=== PATIENT | male | born 1990 | race Caucasian/White ===

== ENCOUNTER 2021-08-17 19:33 | Inpatient (IN) | payer MEDICAID, SELFPAY ==
[2021-08-17 19:33] VITALS: BP 146/102; PULSE 107; RESP 20; TEMP 36.8; O2SAT 100
[2021-08-17 21:12] VITALS: BMI 34.5
[2021-08-17 21:20] VITALS: BP 146/102; PULSE 107; RESP 20; TEMP 36.8; O2SAT 100
[2021-08-17 21:49] VITALS: BMI 34.5
[2021-08-17] MEDS: buprenorphine-naloxone 4-1 mg Film 2 EACH SUBLINGUAL (22:31)
[2021-08-17] MEDS: doxepin 50 mg Capsule 100 MG PO (22:31)
[2021-08-17] MEDS: prazosin 1 mg Capsule PO (22:31)
[2021-08-17] MEDS: OLANZapine 5 mg ODT PO (22:37)
[2021-08-17] MEDS: gabapentin 400 mg Capsule 800 MG PO (22:37)
--- NOTE | 2021-08-17 23:32 | PC.ADMIT ---
Admission Note: Patient is a 31 year old male who was a direct admit from [facility]. He states he is here for help with his depression and anxiety and has been having suicidal thoughts like jumping out in front of a car. Patient has been using meth for 3 weeks heavily. Today his brother kicked him out and he is now homeless. He reports to the ED that he has PTSD from hs mother dying in his arms from an overdose as a kid. He has been to alf 3 times. The patient,Nam Dotson,31 y/o, was given written information regarding hospital policies, unit procedures and contact persons. Patient's smoking status: . Vital Signs - 8 hr 08/17/21 19:33 08/17/21 21:20 Temperature 98.2 F 98.2 F Pulse Rate 107 H 107 H Respiratory Rate 20 H 20 H Blood Pressure 146/102 146/102 Pulse Oximetry 100 100
[2021-08-18 06:00] VITALS: BP 125/78; PULSE 67; RESP 18; TEMP 36.5; O2SAT 95
[2021-08-18] MEDS: OXcarbazepine 300 mg Tablet PO (09:08)
[2021-08-18] MEDS: metroNIDAZOLE 500 MG Tablet PO ×3 (09:08→20:22)
[2021-08-18] MEDS: buprenorphine-naloxone 4-1 mg Film 2 EACH SUBLINGUAL ×2 (09:08→20:22)
[2021-08-18] MEDS: gabapentin 400 mg Capsule 800 MG PO ×3 (09:08→20:22)
[2021-08-18] MEDS: acetaminophen 325 mg Tablet 650 MG PO (09:08)
--- NOTE | 2021-08-18 12:08 | W.PM.NPUH&PS ---
Providers/Chief Complaint Admitting Physician: Saul Mares MD Chief Complaint: Substance Abuse HPI NPU History of Present Illness Nam Dotson is a 31 year old male admitted from an outside emergency department with the following report: 31-year-old male with HIV, anxiety/depression, PTSD and polysubstance abuse presented to the ER with plans to run into moving traffic to commit suicide . ?He states that he was at his brother's and he kicked him out, after he gave him half of his check for rent. ?He uses meth (snorts or eats it) 1-2 times weekly when he can get it, but ?really heavily lately .? He reports he has PTSD because he overdosed mother in his arms when he was a kid. ?He has been in long term you do not know what that will do to you .? He is anxious and said Haldol and Ativan they gave him has not helped, I need something more-like a load .? Currently not suicidal in the hospital but I do not know what I will do if I get kicked out of here, I am homeless .? Informed he is being admitted and social service will consulted for safe discharge plan, suicide precautions, he has recently drug refills and will review pharmacy and renal dose adjustment.? Multiple tattoos they mean something in long term he lives all over I have been here in [facility] and no many friends.? He apparently has previously lived in both the [place] and [place] areas.? He is requesting to be located back to 1 of those areas.? At this time he denies any homicidal ideation, although he admits to ongoing depression and suicidal ideation as outlined above. Urinalysis was positive for tricyclic antidepressants and methamphetamine. ?Affidavit: the patient reports that his life is never going to get better because I have HIV and I will never have another girl again.? I am homeless so what do I have to live for .? It is recommended that the patient be psychiatrically hospitalized as he is currently suicidal with a plan to jump out in front of a vehicle.? The patient's insight and judgment poor if he cannot be treated at a lower level of care. He was admitted to the neuropsychiatry unit for definitive treatment of these issues. He says that he was recently hospitalized for depression and suicidal ideation and was released about 3 weeks ago. He says that they continued his doxepin 100 mg daily gabapentin 800 mg 3 times a day and Suboxone 8 mg twice a day. He says they discontinued Zyprexa 10 mg which he had been on for about 1 year. They added Trileptal 300 mg twice a day and Viibryd 20 mg daily as well as Thorazine 100 mg twice a day. He says that the Thorazine was supposed to be for his anxiety and anger problems. He has not been able to take that because the pharmacy did not have it and then he was unable to go back and get it. He said it did help but it made him tired during the day. He does not think the Viibryd has helped. He is not sure about the Trileptal. He does not think his depression was any any better. He has been living in his brother's house. This past weekend he was doing drugs with his brother and friends. He said that his brother got messed up and kicked him out of the house. He says that he would not want to go back even if his brother left him because he needs to stay away from the drugs. He wants to go to a rehab facility. He has depressed and suicidal. He is not sure what his underlying diagnosis is. He thinks it is depression. Maybe bipolar. His childhood was not very good. Both his mother and father were drug addicts. They were both spent time in long term. His mother of a fentanyl overdose and he was there and she in his arms. He feels like he has PTSD from that. He did not graduate from high school but got his GED. He says that he addicted to pain medications when he was 16 years old and took medications for tooth problems. He then was transitioned to heroin and fentanyl which he used until very recently. He has been off of heroin for 11 months. His drug of choice for the last couple of years has been methamphetamine. He has been in long term a few times. He also feels like he has PTSD from that. He has always had social anxiety. He worries too much about what people think. He has difficulty going to shopping. He also has an anger problem and says that was a little better since he has been on the Trileptal. PAST PSYCHIATRIC HISTORY As above SOCIAL HISTORY As above Meds NPU Home Medications Medication Instructions Recorded Confirmed Last Taken Type bictegravir 50 mg-emtricitabine See Rx Instructions .ROUTE .COMPLEX 08/18/21 08/18/21 08/16/21 History 200 mg-tenofovir alafenam 25 mg tablet (Biktarvy) buprenorphine 8 mg-naloxone 2 mg See Rx Instructions .ROUTE .COMPLEX 08/18/21 08/18/21 08/16/21 History sublingual film (Suboxone) doxepin 100 mg capsule 100 mg PO BEDTIME 08/18/21 08/18/21 08/16/21 History gabapentin 800 mg tablet 800 mg PO TID 08/18/21 08/18/21 08/17/21 History metronidazole 500 mg tablet 500 mg PO TID 08/18/21 08/18/21 08/17/21 History olanzapine 10 mg tablet 10 mg PO BEDTIME 08/18/21 08/18/21 08/17/21 History oxcarbazepine 300 mg tablet 300 mg PO BID 08/18/21 08/18/21 08/17/21 History prazosin 1 mg capsule 1 mg PO BEDTIME 08/18/21 08/18/21 08/17/21 History vilazodone 20 mg tablet (Viibryd) 20 mg PO AC 08/18/21 08/18/21 08/17/21 History Allergies Allergy/AdvReac Type Severity Reaction Status Date / Time codeine Allergy Unknown Verified 08/17/21 21:17 Mental Status Exam MSE Comments: This is an obese 31-year-old male who appears approximately his stated age and is in no acute distress. He was pleasant and cooperative with the evaluation. He was lying in bed and did not sit up. He has many tattoos. His grooming is poor and he is dressed in hospital scrubs. psychomotor activity mildly decreased. Speech is at a regular rate and rhythm, normal volume, good articulation, not pressured. Alert, oriented X3 Attention and concentration probably average. Memory is intact Mood is depressed. Affect is mildly dysphoric. Thought process is logical and goal-directed. Thought content: Denies auditory and visual hallucinations. No delusions or paranoia are noted. No he continues to have some suicidal ideation and hopelessness He denies homicidal ideation. Fund of knowledge is probably average. Insight and judgment appear to be fair. Impulse control is poor. Vitals/I&O/Wt Last Vital Signs Temp 97.7 F 08/18/21 06:00 Pulse 67 08/18/21 06:00 Resp 18 08/18/21 06:00 BP 125/78 08/18/21 06:00 Pulse Ox 95 08/18/21 06:00 Weight last 48 hrs Weight 112.309 kg Weight 112.309 kg A&P Assessment and plan (1) PTSD (post-traumatic stress disorder): Status: Acute (2) Bipolar 1 disorder: Status: Acute (3) Anxiety: Status: Acute (4) Opiate addiction: Status: Acute (5) Methamphetamine abuse: Status: Acute (6) Major depressive disorder: Status: Acute (7) Suicidal ideation: Status: Acute Plan This is a 31-year-old male with PTSD and bipolar 1 disorder as well as methamphetamine abuse and is homeless who presents with depression and wanting rehabilitation. Plan: 1. Continue current medication. Except increase the Viibryd to 40 mg daily. Change Thorazine from 100 mg twice a day to 50 mg in the morning and 150 mg at bedtime 2. Continue every 15 minute checks for safety. 3. Encourage individual, group and milieu therapies. 4. Encourage sober living treatment after discharge at the highest level of care to which he is willing to commit. 5. We will monitor for safety for himself in the community prior to discharge. Involuntary Hold Information 96 Hour Hold: 96 Hour Involuntary Admission: Yes 96 Hour Hold Ending Date: 08/21/21 96 Hour Hold Ending Time: 21:05 Attestations NPU Medical Necessity Statement*: Inpatient hospitalization is medically necessary and the clinically appropriate intervention at this time. We will initiate medications and make changes as indicated. 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
[2021-08-18 14:00] VITALS: BP 145/82; PULSE 72; RESP 17; TEMP 36.6; O2SAT 96
--- NOTE | 2021-08-18 15:08 | PC.NURSE ---
Pharmacist from [facility] called with concern of patient medication Biktarvi and Trileptal with a major medication interaction. Trileptal decreases effectiveness of Biktarvi. Physician notified with order received to discontinue trileptal.
[2021-08-18] MEDS: buprenorphine-naloxone 4-1 mg Film 1 EACH SUBLINGUAL (15:57)
[2021-08-18 20:08] VITALS: BP 126/74; PULSE 66; RESP 16; TEMP 36.7; O2SAT 95
[2021-08-18] MEDS: chlorPROMazine 50 mg Tablet 100 MG PO (20:21)
[2021-08-18] MEDS: prazosin 1 mg Capsule PO (20:22)
[2021-08-18] MEDS: doxepin 50 mg Capsule 100 MG PO (20:22)
[2021-08-18] MEDS: chlorPROMazine 50 mg Tablet PO (20:23)
[2021-08-19 06:00] VITALS: BP 120/81; PULSE 71; RESP 17; TEMP 36.4; O2SAT 96
[2021-08-19] MEDS: chlorPROMazine 50 mg Tablet PO ×2 (06:04→20:12)
[2021-08-19] MEDS: VILAZODONE 40 MG 40 EACH PO (06:07)
[2021-08-19] MEDS: gabapentin 400 mg Capsule 800 MG PO ×3 (08:52→20:11)
[2021-08-19] MEDS: buprenorphine-naloxone 4-1 mg Film 2 EACH SUBLINGUAL ×2 (08:52→20:10)
[2021-08-19] MEDS: metroNIDAZOLE 500 MG Tablet PO (08:52)
--- NOTE | 2021-08-19 11:04 | P.NPUPN_ITS ---
Subjective NPU Subjective: He says that he is a little better. He denies any suicidal ideation since he left the hospital who transferred him here. He was informed that the Trileptal that he had been on can decrease the effectiveness of his HIV medication and we discontinued it. He agreed to try some Lamictal instead. Depression is still his main problem. He is on a good dose of doxepin as well as we doubled the dose of Viibryd yesterday. 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 Mental Status Exam MSE Comments: This is an obese 31-year-old male who appears approx imately his stated age and is in no acute distress. He was pleasant and cooperative with the evaluation. He was lying in bed and did not sit up. He has many tattoos. His grooming is poor and he is dressed in hospital scrubs. psychomotor activity mildly decreased. Speech is at a regular rate and rhythm, normal volume, good articulation, not pressured. Alert, oriented X3 Attention and concentration probably average. Memory is intact Mood is depressed. Affect is mildly dysphoric. Thought process is logical and goal-directed. Thought content: Denies auditory and visual hallucinations. No delusions or paranoia are noted. He denies suicidal ideation. he denies homicidal ideation. Fund of knowledge is probably average. Insight and judgment appear to be fair. Impulse control is poor. Cognition: Patient Appearance: Disheveled/Poor Hygiene Ability to Follow Directions: Excellent Patient Orientation (long list): Person, Place, Time, Name, Month and Year Comprehension Ability: No Impairment Hallucination Type: None Delusion Description: Not Present Thought Process: Appropriate Affect: Affect Description: Calm Behavior: Patient Behavior: Appropriate and Cooperative Speech Pattern: Appropriate and Clear Vitals/I&O/Wt Last Vital Signs Temp 97.5 F L 08/19/21 06:00 Pulse 71 08/19/21 06:00 Resp 17 08/19/21 06:00 BP 120/81 08/19/21 06:00 Pulse Ox 96 08/19/21 06:00 Weight last 48 hrs Weight 112.309 kg Weight 112.309 kg A&P Assessment and plan (1) PTSD (post-traumatic stress disorder): Status: Acute (2) Bipolar 1 disorder: Status: Acute (3) Anxiety: Status: Acute (4) Opiate addiction: Status: Acute (5) Methamphetamine abuse: Status: Acute (6) Major depressive disorder: Status: Acute (7) Suicidal ideation: Status: Acute Plan This is a 31-year-old male with PTSD and bipolar 1 disorder as well as methamphetamine abuse and is homeless who presents with depression and wanting rehabilitation. Plan: 1. Continue current medication. Except increase the Viibryd to 40 mg daily. Change Thorazine from 100 mg twice a day to 50 mg in the morning and 150 mg at bedtime. Stop Trileptal. Add Lamictal 25 mg. 2. Continue every 15 minute checks for safety. 3. Encourage individual, group and milieu therapies. 4. Encourage sober living treatment after discharge at the highest level of care to which he is willing to commit. 5. We will monitor for safety for himself in the community prior to discharge. Involuntary Hold Information 96 Hour Hold: 96 Hour Involuntary Admission: Yes 96 Hour Hold Ending Date: 08/21/21 96 Hour Hold Ending Time: 21:05 Attestations NPU Medical Necessity Statement*: Inpatient hospitalization is medically necessary and the clinically appropriate intervention at this time. We will initiate medications and make changes as indicated. 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
[2021-08-19] MEDS: buprenorphine-naloxone 4-1 mg Film 1 EACH SUBLINGUAL (12:15)
[2021-08-19 14:00] VITALS: BP 129/84; PULSE 66; RESP 18; TEMP 36.7; O2SAT 95
[2021-08-19] MEDS: nicotine 2 mg Gum BUCCAL ×3 (16:07→19:47)
[2021-08-19] MEDS: hyDROXYzine 25 mg Capsule 50 MG PO (16:07)
[2021-08-19] MEDS: OLANZapine 5 mg ODT PO (18:29)
[2021-08-19] MEDS: haloperidol 5 mg Tablet PO (19:10)
[2021-08-19 20:00] VITALS: BP 129/91; PULSE 110; RESP 19; TEMP 36.4; O2SAT 97
[2021-08-19] MEDS: doxepin 50 mg Capsule 100 MG PO (20:10)
[2021-08-19] MEDS: chlorPROMazine 50 mg Tablet 100 MG PO (20:11)
[2021-08-19] MEDS: prazosin 1 mg Capsule PO (20:11)
[2021-08-19] MEDS: lamoTRIgine 25 mg Tablet PO (20:11)
[2021-08-20 06:00] VITALS: BP 123/70; PULSE 64; RESP 15; TEMP 36.5; O2SAT 94
[2021-08-20] MEDS: chlorPROMazine 50 mg Tablet PO ×3 (06:37→21:50)
[2021-08-20] MEDS: VILAZODONE 40 MG 40 EACH PO (06:37)
[2021-08-20] MEDS: gabapentin 400 mg Capsule 800 MG PO ×3 (09:57→20:16)
[2021-08-20] MEDS: buprenorphine-naloxone 4-1 mg Film 2 EACH SUBLINGUAL ×2 (09:57→20:16)
[2021-08-20] MEDS: nicotine 2 mg Gum BUCCAL ×5 (09:57→21:53)
--- NOTE | 2021-08-20 10:50 | P.NPUPN_ITS ---
Subjective NPU Subjective: He does feel that the Thorazine is somewhat helpful. He thinks 150 at bedtime is helpful. He thinks that the 50 mg in the morning might be sedating for him but it also seems like when it wears off he starts getting more anxious around 3 PM. He would like to take another dose of 50 mg at 2 PM. He cannot tell any benefits or side effects from the Lamictal 25 mg last night. Social work is still looking for a rehab facility for him. Mental Status Exam MSE Comments: This is an obese 31-year-old male who appears approximately his stated age and is in no acute distress. He was pleasant and cooperative with the evaluation. He was lying in bed and did not sit up. He has many tattoos. His grooming is poor and he is dressed in hospital scrubs. psychomotor activity mildly decreased. Speech is at a regular rate and rhythm, normal volume, good articulation, not pressured. Alert, oriented X3 Attention and concentration probably average. Memory is intact Mood is depressed. Affect is mildly dysphoric. Thought process is logical and goal-directed. Thought content: Denies auditory and visual hallucinations. No delusions or paranoia are noted. He denies suicidal ideation. he denies homicidal ideation. Fund of knowledge is probably average. Insight and judgment appear to be fair. Impulse control is poor. Cognition: Patient Appearance: Disheveled/Poor Hygiene Ability to Follow Directions: Excellent Patient Orientation (long list): Person, Place, Time, Name, Month and Year Comprehension Ability: No Impairment Hallucination Type: None Delusion Description: Not Present Thought Process: Appropriate Affect: Affect Description: Calm Behavior: Patient Behavior: Appropriate and Cooperative Speech Pattern: Appropriate and Clear Vitals/I&O/Wt Last Vital Signs Temp 97.7 F 08/20/21 06:00 Pulse 64 08/20/21 06:00 Resp 15 08/20/21 06:00 BP 123/70 08/20/21 06:00 Pulse Ox 94 08/20/21 06:00 A&P Assessment and plan (1) PTSD (post-traumatic stress disorder): Status: Acute (2) Bipolar 1 disorder: Status: Acute (3) Anxiety: Status: Acute (4) Opiate addiction: Status: Acute (5) Methamphetamine abuse: Status: Acute (6) Major depressive disorder: Status: Acute (7) Suicidal ideation: Status: Acute Plan This is a 31-year-old male with PTSD and bipolar 1 disorder as well as methamphetamine abuse and is homeless who presents with depression and wanting rehabilitation. Plan: 1. Continue current medication. Except increase the Viibryd to 40 mg daily. Change Thorazine from 100 mg twice a day to 50 mg in the morning, 2 pm and 150 mg at bedtime. Add Lamictal 25 mg. 2. Continue every 15 minute checks for safety. 3. Encourage individual, group and milieu therapies. 4. Encourage sober living treatment after discharge at the highest level of care to which he is willing to commit. 5. We will monitor for safety for himself in the community prior to discharge. Involuntary Hold Information 96 Hour Hold: 96 Hour Involuntary Admission: Yes 96 Hour Hold Ending Date: 08/21/21 96 Hour Hold Ending Time: 21:05 Attestations U Medical Necessity Statement*: Inpatient hospitalization is medically necessary and the clinically appropriate intervention at this time. We will initiate medications and make changes as indicated. 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
[2021-08-20] MEDS: buprenorphine-naloxone 4-1 mg Film 1 EACH SUBLINGUAL (12:25)
[2021-08-20 14:00] VITALS: BP 101/76; PULSE 69; RESP 17; TEMP 37.1; O2SAT 98
[2021-08-20 20:34] VITALS: BP 120/72; PULSE 83; RESP 18; TEMP 36.6; O2SAT 91
[2021-08-20] MEDS: lamoTRIgine 25 mg Tablet PO (21:50)
[2021-08-20] MEDS: prazosin 1 mg Capsule PO (21:50)
[2021-08-20] MEDS: doxepin 50 mg Capsule 100 MG PO (21:50)
[2021-08-20] MEDS: chlorPROMazine 50 mg Tablet 100 MG PO (21:50)
[2021-08-21 06:00] VITALS: BP 108/71; PULSE 63; RESP 20; TEMP 36.4; O2SAT 93
[2021-08-21] MEDS: chlorPROMazine 50 mg Tablet PO (06:02)
[2021-08-21] MEDS: VILAZODONE 40 MG 40 EACH PO (06:02)
[2021-08-21] MEDS: buprenorphine-naloxone 4-1 mg Film 2 EACH SUBLINGUAL (08:29)
[2021-08-21] MEDS: gabapentin 400 mg Capsule 800 MG PO (08:29)
[2021-08-21] MEDS: nicotine 2 mg Gum BUCCAL (08:29)
--- NOTE | 2021-08-21 10:50 | P.NPUDS_ITS ---
Diagnoses at Discharge Discharge Diagnosis (1) PTSD (post-traumatic stress disorder): Status: Acute (2) Bipolar 1 disorder: Status: Acute (3) Anxiety: Status: Acute (4) Opiate addiction: Status: Acute (5) Methamphetamine abuse: Status: Acute (6) Major depressive disorder: Status: Acute (7) Suicidal ideation: Status: Acute Reason for Visit Reason for Visit: Substance Abuse Brief History: History of Present Illness Nam Dotson is a 31 year old male admitted from an outside emergency department with the following report: 31-year-old male with HIV, anxiety/depression, PTSD and polysubstance abuse presented to the ER with plans to run into moving traffic to commit suicide . ?He states that he was at his brother's and he kicked him out, after he gave him half of his check for rent. ?He uses meth (snorts or eats it) 1-2 times weekly when he can get it, but ?really heavily lately .? He reports he has PTSD because he overdosed mother in his arms when he was a kid. ?He has been in detention you do not know what that will do to you .? He is anxious and said Haldol and Ativan they gave him has not helped, I need something more-like a load .? Currently not suicidal in the hospital but I do not know what I will do if I get kicked out of here, I am homeless .? Informed he is being admitted and social service will consulted for safe discharge plan, suicide precautions, he has recently drug refills and will review pharmacy and renal dose adjustment.? Multiple tattoos they mean something in detention he lives all over I have been here in [facility] and no many friends.? He apparently has previously lived in both the [place] and [place] areas.? He is requesting to be located back to 1 of those areas.? At this time he denies any homicidal ideation, although he admits to ongoing depression and suicidal ideation as outlined above. Urinalysis was positive for tricyclic antidepressants and methamphetamine. ?Affidavit: the patient reports that his life is never going to get better because I have HIV and I will never have another girl again.? I am homeless so what do I have to live for .? It is recommended that the patient be psychiatrically hospitalized as he is currently suicidal with a plan to jump out in front of a vehicle.? The patient's insight and judgment poor if he cannot be treated at a lower level of care. He was admitted to the neuropsychiatry unit for definitive treatment of these issues.? He says that he was recently hospitalized for depression and suicidal ideation and was released about 3 weeks ago.? He says that they continued his doxepin 100 mg daily gabapentin 800 mg 3 times a day and Suboxone 8 mg twice a day.? He says they discontinued Zyprexa 10 mg which he had been on for about 1 year.? They added Trileptal 300 mg twice a day and Viibryd 20 mg daily as well as Thorazine 100 mg twice a day.? He says that the Thorazine was supposed to be for his anxiety and anger problems.? He has not been able to take that because the pharmacy did not have it and then he was unable to go back and get it.? He said it did help but it made him tired during the day.? He does not think the Viibryd has helped.? He is not sure about the Trileptal.? He does not think his depression was any any better.? He has been living in his brother's house. This past weekend he was doing drugs with his brother and friends.? He said that his brother got messed up and kicked him out of the house.? He says that he would not want to go back even if his brother left him because he needs to stay away from the drugs.? He wants to go to a rehab facility.? He has depressed and suicidal.? He is not sure what his underlying diagnosis is.? He thinks it is depression.? Maybe bipolar.? His childhood was not very good.? Both his mother and father were drug addicts.? They were both spent time in detention.? His mother of a fentanyl overdose and he was there and she in his arms.? He feels like he has PTSD from that.? He did not graduate from high school but got his GED.? He says that he addicted to pain medications when he was 16 years old and took medications for tooth problems.? He then was transitioned to heroin and fentanyl which he used until very recently.? He has been off of heroin for 11 months.? His drug of choice for the last couple of years has been methamphetamine.? He has been in detention a few times.? He also feels like he has PTSD from that.? He has always had social anxiety.? He worries too much about what people think.? He has difficulty going to shopping.? He also has an anger problem and says that was a little better since he has been on the Trileptal. Hospital Course Hospital Course He slowly acclimated to the individual, group and milieu therapies provided. Trileptal was discontinued because pharmacy said it could decrease the effect of his HIV medication. He felt that the Thorazine 100 mg twice a day was helpful but too sedating and it was changed to 50 mg twice a day and 150 mg at bedtime which he felt was very helpful. Lamictal 25 mg was added in hopes that it might eventually replace the Trileptal. His Viibryd was increased to 40 mg daily. He tolerated these doses and showed steady improvement during his stay. He was able to contract for safety outside hospital prior to discharge. During the hospitalization, patient had routine laboratory studies which were within normal limits except for few outliers. Additionally there was a general medical evaluation which was also within normal limits and revealed no new acute processes. Discharge Summary: At the time of discharge, lethality was denied and psychosis was resolving. Mood and anxiety were well managed. Patient endorsed a plan to follow-up with the aftercare recommendations of the treatment team. Patient was evaluated and deemed to be absent credible lethality, and had achieved the maximum benefit from an inpatient hospitalization, so was discharged. Involuntary Hold Information 96 Hour Hold: 96 Hour Involuntary Admission: Yes 96 Hour Hold Ending Date: 08/21/21 96 Hour Hold Ending Time: 21:05 Mental Status Exam MSE Comments: This is an obese 31-year-old male who appears approximately his stated age and is in no acute distress. He was pleasant and cooperative with the evaluation. He was lying in bed and did not sit up. He has many tattoos. His grooming is poor and he is dressed in hospital scrubs. psychomotor activity mildly decreased. Speech is at a regular rate and rhythm, normal volume, good articulation, not pressured. Alert, oriented X3 Attention and concentration probably average. Memory is intact Mood is depressed. Affect is mildly dysphoric. Thought process is logical and goal-directed. Thought content: Denies auditory and visual hallucinations. No delusions or paranoia are noted. He denies suicidal ideation. he denies homicidal ideation. Fund of knowledge is probably average. Insight and judgment appear to be fair. Impulse control is poor. Cognition: Patient Appearance: Appropriate Ability to Follow Directions: Excellent Patient Orientation (long list): Person, Place, Time, Name, Month and Year Comprehension Ability: No Impairment Hallucination Type: None Delusion Description: Not Present Thought Process: Appropriate Affect: Affect Description: Calm Behavior: Patient Behavior: Appropriate and Cooperative Speech Pattern: Appropriate and Clear Discharge Data Vitals: Last Vital Signs Temp 97.6 F 08/21/21 06:00 Pulse 63 08/21/21 06:00 Resp 20 H 08/21/21 06:00 BP 108/71 08/21/21 06:00 Pulse Ox 93 08/21/21 06:00 Discharge Plan Discharge Patient Disposition: Home Condition: Stable Prescriptions: New lamotrigine 25 mg Tablet 25 mg PO BEDTIME 30 Days Qty: 30 1RF chlorpromazine 50 mg Tablet 100 mg PO BEDTIME 30 Days Qty: 30 1RF chlorpromazine 50 mg Tablet 50 mg PO 0700,1400,2100 30 Days Qty: 90 1RF buprenorphine-naloxone 4-1 mg Film 1 ea sublingual 1200 Qty: 0 0RF Vilazodone [Viibryd] 40 mg PO QAM 30 Days Qty: 30 1RF Continued Biktarvy 50-200-25 mg tablet See Rx Instructions .ROUTE .COMPLEX 0RF Rx Instructions: tAKE 1 TAB [id number] DAILY Suboxone 8-2 mg film See Rx Instructions .ROUTE .COMPLEX 0RF Rx Instructions: TAKE ONE STRIP TWICE DAILY doxepin 100 mg capsule 100 mg PO BEDTIME 0RF metronidazole 500 mg tablet 500 mg PO TID 0RF prazosin 1 mg capsule 1 mg PO BEDTIME 0RF gabapentin 800 mg tablet 800 mg PO TID 30 Days Qty: 90 1RF Discontinued Viibryd 20 mg tablet 20 mg PO AC 0RF olanzapine 10 mg tablet 10 mg PO BEDTIME 0RF oxcarbazepine 300 mg tablet 300 mg PO BID 0RF Discharge Orders: Discharge Order (Routine); Ordered 08/21/21 Ordered By: Saul Mares Discharge Diet: Regular Discharge Activity: Resume usual activity Patient Instructions: Opioid Safety Discharge Attestations NPU Time Spent in Discharge Care*: less than 30 min Specific Discharge Activities: Specific discharge activities: educating patient, discussing with case management social worker/social workers/dc planners, documenting/other paperwork and evaluating patient/reviewing data Coding Level [facility] Diagnoses PTSD (post-traumatic stress disorder) F43.10 Bipolar 1 disorder F31.9 Anxiety F41.9 Opiate addiction F11.20 Methamphetamine abuse F15.10 Major depressive disorder F32.9 Suicidal ideation R45.851
[2021-08-21 11:11] VITALS: BP 108/71; PULSE 63; RESP 20; TEMP 36.4; O2SAT 93
== END 2021-08-21 12:54 | disposition home or self-care (01) | DRG 881 ==
PROVIDERS: Admitting Provider Psychiatry & Neurology Psychiatry; Visit Provider Psychiatry & Neurology Psychiatry
DX: F32.A Depression, unspecified (principal); R45.851 Suicidal ideations; F43.10 Post-traumatic stress disorder, unspecified; F15.10 Other stimulant abuse, uncomplicated; Z59.00 Homelessness unspecified; F40.10 Social phobia, unspecified; F11.11 Opioid abuse, in remission
CPT/HCPCS: 97165; J0573; Q0161